=== PATIENT | female | born 1985 | race Two or more races ===

== ENCOUNTER 2017-02-03 16:51 | Emergency (ER) | payer OTHER ==
[2017-02-03 17:01] VITALS: BMI 44.4
[2017-02-03 17:48] VITALS: TEMP 97.9
[2017-02-03 19:29] LABS: BASOPHIL 0.2 % (0-2.0); EOSINOPHIL 0.5 % (0-4.5); MCH 26.3 pg (25.7-33.7); MCHC 32.1 g/dl (32.0-36.0); MEAN CELL VOLUME 81.9 fl (80-96); MEAN PLT VOLUME 8.8 fl (7.5-11.1); PLATELET COUNT 282 K/MM3 (134-434); RDW 15.3 % (11.6-15.6); WHITE BLOOD COUNT 15.5 K/mm3 (4.0-10.0)
[2017-02-03 19:41] LABS: URIC ACID 3.3 mg/dL (2.6-7.2)
[2017-02-03 20:02] LABS: URINE APPEARANCE CLEAR; URINE BILIRUBIN NEGATIVE (NEGATIVE); URINE BLOOD NEGATIVE (NEGATIVE); URINE COLOR COLORLESS; URINE GLUCOSE (UA) NEGATIVE (NEGATIVE); URINE KETONE NEGATIVE (NEGATIVE); URINE LEUK ESTERASE NEGATIVE (NEGATIVE); URINE NITRITE NEGATIVE (NEGATIVE); URINE PROTEIN NEGATIVE (NEGATIVE); URINE UROBILINOGEN NEGATIVE E.U./dl (0.2-1.0)
[2017-02-03 21:05] VITALS: BP 146/68; PULSE 92
== END 2017-02-03 21:16 | disposition home or self-care (01) ==
LOC: JER 16:51
DX: O26.893 Other specified pregnancy related conditions, third trimester (principal); M54.5 Low back pain; Z3A.38 38 weeks gestation of pregnancy
CPT/HCPCS: 36415; 81003; 82977; 83010; 84450; 84460; 84550; 85025; 85044; 99281-25

== ENCOUNTER 2017-02-04 02:00 | Inpatient (IN) | payer OTHER ==
[2017-02-04 02:59] VITALS: BMI 43.7
[2017-02-04 03:30] LABS: BASOPHIL 0.2 % (0-2.0); EOSINOPHIL 0.4 % (0-4.5); MCH 26.4 pg (25.7-33.7); MCHC 32.2 g/dl (32.0-36.0); MEAN PLT VOLUME 8.8 fl (7.5-11.1); NEUTROPHILS 68.5 % (42.8-82.8); PLATELET COUNT 286 K/MM3 (134-434); RDW 15.1 % (11.6-15.6); WHITE BLOOD COUNT 19.1 K/mm3 (4.0-10.0)
[2017-02-04 03:45] LABS: INR 1.07 (0.82-1.09); PROTHROMBIN TIME (PATIENT) 11.8 SEC (9.98-11.88)
[2017-02-04 03:48] LABS: ACTIVATED PTT 30.6 SECONDS (26.9-34.4)
[2017-02-04 03:51] LABS: CREATININE 0.5 mg/dL (0.55-1.02)
--- NOTE | 2017-02-04 04:09 | HP ---
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: Alzheimer's, CVA, Dementia, Migraine, Multiple Sclerosis, Peripheral Neuropathy, Parkinson's, Seizure, Syncope, TIA, Vertigo, Other Cardiovascular: No: AFIB, Aneurysm, Aortic Insufficiency, Aortic Stenosis, CAD, CHF, Deep Vein Thrombosis, HTN, Hyperlipdemia, GA, Mitral Insufficiency, Mitral Stenosis, Murmur, Pulmonary Hypertension, Other Pulmonary: No: Asthma, Bronchitis, Cancer, COPD, O2 Dependent, Pneumonia, Previously Intubated, Pulmonary Embolus, Pulmonary Fibrosis, Sleep Apnea, Other Gastrointestinal: No: Ascites, Cancer, Constipation, Crohn's Disease, Diverticulitis, Diverticulosis, Esophageal Varices, Gastritis, GERD, GI Bleed, Hemorrhoids, Hiatal Hernia, Inflamatory Bowel Disease, Irritable Bowel Disease, Pancreatitis, Peptic Ulcer Disease, Ulcerative Colitis, Other Hepatobiliary: No: Cirrhosis, Cholelithiasis, Cholecystitis, Choledocholithiasis , Hepatitis A, Hepatitis B, Hepatitis C, Other Renal/: No: Renal Failure, Renal Inusuff, BPH, Cancer, Hematuria, Hemodialysis , Neurogenic Bladder, Renal Calculi, UTI, Other Reproductive: No: Ectopic , Endometriosis, Fibroids, PID, Polycystic Ovary Syndrome, Postmenopausal, Other ...: 6 ...Para: 3 Heme/Onc: No: Anemia, B12 Deficiency, Bleeding Disorder, Cancer, Current Chemotherapy, Current Radiation Therapy, Hemochromatosis, Hypercoaguable State, Myeloproliferative Synd, Sickle Cell Disease, Sickle Cell Trait, Thrombocytopenia, Other Infectious Disease: No: AIDS, C-Diff, Herpes Zoster, HIV, MRSA, STD's, Tuberculosis, VREF, Other Psych: No: Addictions, Anxiety, Bipolar, Depression, Panic, Psychosis, Schizophrenia, Other Musculoskeletal: No: Bursitis, Chronic low back pain, Hemiparesis, Hemiplegia, Osteoarthritis, Paraplegia, Other Rheumatology: No: Fibromyalgia, Gout, Lupus, Rheumatoid Arthritis, Sarcoidosis, Vasculitis, Other ENT: No: Allergic Rhinitis, Sinusitis, Other Endocrine: No: [place]'s Disease, [place]'s Disease, Diabetes Insipidus, Diabetes Mellitus, Hyperparathyroidism, Hyperthyroidism, Hypothyroidism, Osteopenia, SIADH, Other - Past Surgical History Past Surgical History: No: None, AAA Repair, AICD, Amputation, Appendectomy, Arthrosocopy, AV Fistula/Graft, Bariatric Surgery, Breast Biopsy, Bypass, CABG, Carotid Endarterectomy, Cataract Removal, Cholecystectomy, Colectomy, Colonoscopy, Colostomy, Craniotomy, , Cystectomy, Hernia Repair, Hysterectomy, Ileal Conduit, Ileosotomy, Joint Replacement, Kidney Transplant, Laminectomy, Liver Transplant, Mastectomy, Nephrectomy, Oopherectomy, Orchiectomy, Permanent Pacemaker, Prostatectomy, Splenectomy, Stent, Thoracotomy , TURP, Tonsillectomy, Tubal Ligation, Upper Endoscopy, Valve Replacement, Vasectomy, Vein Stripping/Ligation - Advance Directives Advance Directives: No: Living Will, Health Care Proxy, DNR, Organ Donor, Tissue Donor, MOLST - Smoking History Smoking history: Never smoked Have you smoked in the past 12 months: No - Alcohol/Substance Use Hx Alcohol Use: No History of Substance Use: denies: None, Cocaine, Heroin, Marijuana, Prescription , Tranquilizers - Social History Usual Living Arrangement: No: Alone, With Spouse, With Parent, With Significant Other, With Child, Assisted Living, Skilled Nursing, Other History of Recent Travel: No Home Medications - Allergies Allergies/Adverse Reactions: Allergies Allergy/AdvReac Type Severity Reaction Status Date / Time No Known Allergies Allergy Verified 02/04/17 03:06 - Home Medications Home Medications: Ambulatory Orders Pnv95/Iron Fum/Folic Acid [ Caplet] 1 tab PO DAILY 02/19/16 Review of Systems - Review of Systems Constitutional: reports: No Symptoms Eyes: reports: No Symptoms HENT: reports: No Symptoms Neck: reports: No Symptoms Cardiovascular: reports: No Symptoms Respiratory: reports: No Symptoms Gastrointestinal: reports: No Symptoms Genitourinary: reports: No Symptoms Breasts: reports: No Symptoms Reported Musculoskeletal: reports: No Symptoms Integumentary: reports: No Symptoms Neurological: reports: No Symptoms Endocrine: reports: No Symptoms Hematology/Lymphatic: reports: No Symptoms Psychiatric: reports: No Symptoms Physical Examination Vital Signs: Vital Signs Temperature 97.7 F 02/04/17 02:37 Pulse Rate 105 H 02/04/17 02:37 Respiratory Rate 18 02/04/17 02:37 Blood Pressure 159/86 02/04/17 02:37 O2 Sat by Pulse Oximetry (%) Constitutional: Yes: Well Nourished Eyes: Yes: WNL HENT: Yes: WNL Neck: Yes: WNL Cardiovascular: Yes: WNL Respiratory: Yes: WNL Gastrointestinal: Yes: WNL ...Rectal Exam: Yes: WNL Renal/: Yes: WNL Breast(s): Yes: WNL Musculoskeletal: Yes: WNL Extremities: Yes: WNL Neurological: Yes: WNL ...Motor Strength: WNL Psychiatric: Yes: WNL Labs: CBC, BMP 02/04/17 02:44 02/04/17 02:44 Assessment/Plan as above admit labs
--- NOTE | 2017-02-04 04:10 | PN ---
Delivery - Delivery Vaginal Delivery: No Problems Episiotomy/Laceration: None EBL (cc): 300 Delivery, Single - Feeding Plan Initial Plan: Elected not to breastfeed exclusively throughout hospitalization
[2017-02-04] MEDS ORDERED: BISACODYL 10 MG SUPP.RECT RC PRN (04:14)
[2017-02-04] MEDS ORDERED: WITCH HAZEL 50% (TUCKS) 40 PAD/JAR PAD TP PRN (04:14)
[2017-02-04] MEDS ORDERED: BENZOCAINE 20% 57 GM BOTTLE TP PRN (04:14)
[2017-02-04] MEDS ORDERED: METHYLERGONOVINE MALEATE 0.2 MG/1 ML AMP IM PRN (04:14)
[2017-02-04] MEDS ORDERED: BENZOCAINE 28 GM HEMORRHOIDAL OINTMENT TP PRN (04:14)
[2017-02-04] MEDS ORDERED: OXYTOCIN 20 UNITS in 0.9% NS 1,000 ML IV SCH (04:15)
[2017-02-04] MEDS ORDERED: DEXTROSE 5%-LACTATED RINGERS 1,000 ML IV SCH (04:15)
[2017-02-04] MEDS: IBUPROFEN 600 MG TABLET (FP) PO PRN ×4 (05:00→18:36)
[2017-02-04 06:09] LABS: URINE MARIJUANA THC NEGATIVE ng/ml (CUTOFF=50)
[2017-02-04] MEDS: ACETAMINOPHEN 325 MG TABLET (FP) PO PRN ×3 (08:02→18:38)
[2017-02-05] MEDS: ACETAMINOPHEN 325 MG TABLET (FP) PO PRN ×5 (00:21→21:49)
[2017-02-05] MEDS: IBUPROFEN 600 MG TABLET (FP) PO PRN ×5 (00:26→21:51)
--- NOTE | 2017-02-05 01:57 | PN ---
Post Progress Note Type of Delivery: Vital Signs: Vital Signs Temperature 97.8 F 02/04/17 21:00 Pulse Rate 88 02/04/17 21:00 Respiratory Rate 18 02/04/17 21:00 Blood Pressure 125/74 02/04/17 21:00 O2 Sat by Pulse Oximetry (%) 99 02/04/17 05:05 Breast Exam: Yes: Soft Uterus: Yes: Fundus Firm Abdomen/GI: Yes: Abdomen soft Lochia: Yes: Rubra Lochia, amount: Small Extremities: Yes: Calves non-tender Perineum: Yes: Intact Activity: Ambulating - Labs Labs: CBC WBC 19.1 K/mm3 (4.0-10.0) H 02/04/17 02:44 RBC 4.67 M/mm3 (3.60-5.2) 02/04/17 02:44 Hgb 12.3 GM/dL (10.7-15.3) 02/04/17 02:44 Hct 38.2 % (32.4-45.2) 02/04/17 02:44 MCV 82.0 fl (80-96) 02/04/17 02:44 MCHC 32.2 g/dl (32.0-36.0) 02/04/17 02:44 RDW 15.1 % (11.6-15.6) 02/04/17 02:44 Plt Count 286 K/MM3 (134-434) 02/04/17 02:44 MPV 8.8 fl (7.5-11.1) 02/04/17 02:44 Neutrophils % 68.5 % (42.8-82.8) 02/04/17 02:44 Lymphocytes % 22.3 % (8-40) 02/04/17 02:44 Monocytes % 8.6 % (3.8-10.2) 02/04/17 02:44 Eosinophils % 0.4 % (0-4.5) 02/04/17 02:44 Basophils % 0.2 % (0-2.0) 02/04/17 02:44 Assessment/Plan as above labs continue care
[2017-02-05 06:04] LABS: BASOPHIL 0.3 % (0-2.0); EOSINOPHIL 0.7 % (0-4.5); MCH 26.6 pg (25.7-33.7); MCHC 32.6 g/dl (32.0-36.0); MEAN CELL VOLUME 81.5 fl (80-96); MEAN PLT VOLUME 8.5 fl (7.5-11.1); NEUTROPHILS 64.1 % (42.8-82.8); PLATELET COUNT 259 K/MM3 (134-434); RDW 15.5 % (11.6-15.6); WHITE BLOOD COUNT 14.7 K/mm3 (4.0-10.0)
[2017-02-05] MEDS ORDERED: SENNOSIDES/DOCUSATE COMBO (SENNA PLUS) TABLET (UD) PO PRN (22:00)
[2017-02-06 08:05] VITALS: BP 136/81; PULSE 94; TEMP 98.8
--- NOTE | 2017-02-06 08:28 | PN ---
Post Progress Note Post Day: 2 Type of Delivery: Vital Signs: Vital Signs Temperature 98.8 F 02/06/17 07:15 Pulse Rate 94 H 02/06/17 07:15 Respiratory Rate 20 02/06/17 07:15 Blood Pressure 136/81 02/06/17 07:15 O2 Sat by Pulse Oximetry (%) 99 02/04/17 05:05 Breast Exam: Yes: Soft Uterus: Yes: Fundus Firm Abdomen/GI: Yes: Abdomen soft Lochia: Yes: Rubra Lochia, amount: Small Extremities: Yes: Calves non-tender Perineum: Yes: Intact - Labs Labs: CBC WBC 14.7 K/mm3 (4.0-10.0) H 02/05/17 05:28 RBC 4.10 M/mm3 (3.60-5.2) 02/05/17 05:28 Hgb 10.9 GM/dL (10.7-15.3) D 02/05/17 05:28 Hct 33.4 % (32.4-45.2) 02/05/17 05:28 MCV 81.5 fl (80-96) 02/05/17 05:28 MCHC 32.6 g/dl (32.0-36.0) 02/05/17 05:28 RDW 15.5 % (11.6-15.6) 02/05/17 05:28 Plt Count 259 K/MM3 (134-434) 02/05/17 05:28 MPV 8.5 fl (7.5-11.1) 02/05/17 05:28 Neutrophils % 64.1 % (42.8-82.8) 02/05/17 05:28 Lymphocytes % 25.6 % (8-40) 02/05/17 05:28 Monocytes % 9.3 % (3.8-10.2) 02/05/17 05:28 Eosinophils % 0.7 % (0-4.5) 02/05/17 05:28 Basophils % 0.3 % (0-2.0) 02/05/17 05:28 Assessment/Plan doing well dc home
[2017-02-06] MEDS: IBUPROFEN 600 MG TABLET (FP) PO PRN (10:09)
[2017-02-06] MEDS: ACETAMINOPHEN 325 MG TABLET (FP) PO PRN (10:10)
--- NOTE | 2017-04-11 21:51 | DS ---
DATE OF ADMISSION: 02/04/2017 DATE OF DISCHARGE: 02/06/2017 HOSPITAL COURSE: Patient was seen throughout her hospital course and noted to be doing well. The patient was subsequently discharged home. To be followed up in the office. JAGRUTI PONCE M.D. [id number]
== END 2017-02-06 12:00 | disposition home or self-care (01) | DRG 560 ==
LOC: JLDR 02:00 → J3W 05:52
PROVIDERS: ADMIT Obstetrics & Gynecology; ATTEND Obstetrics & Gynecology
PROC: 10E0XZZ Delivery of Products of Conception, External Approach (ICD-10-PCS; principal; 2017-02-04)
DX: O80 Encounter for full-term uncomplicated delivery (principal); Z3A.38 38 weeks gestation of pregnancy; Z37.0 Single live birth
CPT/HCPCS: 36415; 59409; 80048; 80307; 85025; 85610; 85730; 86593; 86850; 86900; 86901